=== PATIENT | female | born 1985 | race Caucasian/White ===

== ENCOUNTER 2019-04-03 08:53 | Emergency (ER) | payer SELFPAY ==
[~2019-04-03] VITALS: Ht 152.4 cm; Wt 75.3 kg
[2019-04-03 09:05] VITALS: Ht 152.4 cm; Wt 75.3 kg
[2019-04-03 10:41] VITALS: BP 121/73
== END 2019-04-03 12:37 | disposition home or self-care (01) ==
LOC: ED 08:53
DX: N10 Acute pyelonephritis (principal); M25.572 Pain in left ankle and joints of left foot; M79.672 Pain in left foot; I10 Essential (primary) hypertension; M79.601 Pain in right arm; Z90.49 Acquired absence of other specified parts of digestive tract
CPT/HCPCS: J0696